=== PATIENT | female | born 1990 | race Caucasian/White ===

== ENCOUNTER → 2016-03-17 | Day surgery (SDC) | payer OTHER ==
[~2016-03-17] VITALS: Ht 167.6 cm; Wt 93.9 kg
[~2016-03-17] MED LIST: AUGMENTIN 875 M1 TAB PO; BACTRIM DS 8001 TAB PO; PERCOCET 325 MG1 TA2 PO
--- NOTE | 2016-03-17 13:36 | Operative Report ---
Operative/Inv Procedure Report Surgery Date: 03/17/16 Name of Procedure: Excision of pilonidal cyst with local advancement flap Pre-Operative Diagnosis: Pilonidal cyst Post-Operative Diagnosis: Same Estimated Blood Loss: scant Surgeon/Real Estate Recruiter: JOLIE ALEX,ALLEY Duncan Anesthesia: local monitored anesthesi Drains: 1 inch iodoform Nu Gauze Specimens: To pathology Operative/Procedure Note Note: After consent she is brought to the operating room and laid prone. Sedation was obtained and her gluteus was prepped and draped. There was a solitary pilonidal pit in the midline. There are multiple other small pits throughout the supragluteal midline. The largest. It was probed and found to track extensively, more so on to the right of the midline superiorly tract approximately 3 cm. The area around the cyst was after local anesthesia. A "D " shaped excision was performed, encompassing the right-sided cyst subcutaneous tissues tissues were dissected with cautery. We circumferentially dissected very large and extensive pilonidal cyst. There is a large amount of retained purulence. The cyst was completely removed and passed off the field. Wound was irrigated with saline hemostasis achieved with cautery. In order to close it off the midline left-sided advancement flap was performed by elevating the subcutaneous tissues with cautery. Then closed the skin with interrupted 3-0 nylon suture in a mattress fashion. The inferior portion of the incision was left open for packing with 1 inch iodoform Nu Gauze. Bacitracin ointment was applied and sterile dressing applied.
== END ==
LOC: STS 02:01
DX: L05.91 Pilonidal cyst without abscess (principal)
CPT/HCPCS: 81025; 88304; J0131; J1885; J2250; J2405